=== PATIENT | male | born 1975 | race Caucasian/White ===

== ENCOUNTER → 2016-04-12 | Outpatient (CLI) | payer BC, OTHER ==
[2016-04-12 13:10] VITALS: BP 144/92; PULSE 82; RESP 16; TEMP 97.7
--- NOTE | 2016-04-12 13:23 | P.PN ---
Progress Note - Text Patient returns for followup for chronic back pain with radiation to right hip and RLE. Patient recently underwent TFESI x 2 with 75% relief for three months. Patient continues on no medications for pain. Patient denies adverse drug effects from medications. Today, pt denies new-onset weakness, bowel/ bladder incontinence, or any other signs or symptoms of cauda equina syndrome. There are no signs of acute intoxication, and no indications of medication diversion or overuse. In addition to above, 13-point review of systems is also negative for chest pain , shortness of breath, changes in vision, changes in hearing, new onset weakness , abdominal pain, diarrhea, extreme fatigue, malaise, fever, skin changes, homicidal or suicidal ideation, or bowel or bladder incontinence. Vital Signs: Reviewed in EMR Gen: WDWN, AAOx3, NAD HEENT: NCAT, EOMI, hearing grossly normal Pulm: resp unlabored Abd: soft, NT, ND Neck: supple, trachea midline ROM in flexion lumbar spine: reduced ROM in extension lumbar spine: reduced Lumbar paravertebral tenderness: + Facet loading: + R side SI joint tenderness: neg Orlin's test: neg Straight leg raise: + R side at 30-35 degrees Neuro: CN II-XII grossly intact, muscle strength lower extremities PRESERVED Imaging: Reviewed in EMR Assessment: 1. lumbar radiculopathy 2. chronic pain syndrome 3. Plan: 1. Explanation: Opioid and psychological risk scores were reviewed. Diagnoses , prognoses, and multiple treatment options including but not limited to physical therapy, interventional therapies, adjuvant medical therapies, narcotic medication therapies, and surgery were discussed with the patient and all questions were answered to the patient's satisfaction. 2. Opioid agreement: no opioids prescribed 3. Counseling: The patient was counseled extensively on BODY MASS INDEX, EXERCISE. Specifically, the patient was instructed regarding the importance of weight control and exercise in the context of both chronic pain and overall health. 4. Procedures: right L4-L5 and L5-S1 TFESI in 12 weeks 5. Consultations: None 6. Investigations: None 7. Medications: none prescribed 8. Disposition: f/u for procedure as scheduled PQRS measures: 1-Patient's medications are documented in the chart. 2-Tobacco use is negative 3-Patient has not had a pneumococcal vaccine. 4-Advanced care planning discussed, patient unable to give. 5-Opioid contract NOT signed with the patient as no opioids given. 6-Pain positive, follow-up visit or procedure scheduled 7-Patient's blood pressure measured and documented, and patient will follow up with the primary care due to hypertension. 8-Patient's weight was measured, and body mass index ABOVE the normal limits, and counseling was done. Patient instructed to follow up with PCP. 9-Patient WAS NOT identified as an unhealthy alcohol user.
== END | disposition home or self-care (01) ==
LOC: PNWHC3 12:39
PROVIDERS: ATTEND Anesthesiology
DX: M54.16 Radiculopathy, lumbar region (principal); G89.4 Chronic pain syndrome; I10 Essential (primary) hypertension
CPT/HCPCS: 99211

== ENCOUNTER 2016-07-04 06:29 | Day surgery (SDC) | payer BC, OTHER ==
[2016-06-30 14:36] VITALS: BMI 29.5
[2016-07-04] MEDS ORDERED: LACTATED RINGERS 1,000 ML IV ONE ×2 (07:43→08:15)
[2016-07-04] MEDS ORDERED: LIDOCAINE 1% 20 ML VIAL (10MG/ML) FOR IV START INTRADERMA ONE (07:44)
[2016-07-04 07:46] VITALS: RESP 18; TEMP 97.7
[2016-07-04] MEDS ORDERED: TRIAMCINOLONE ACETONIDE 40 MG/ML 1 ML VIAL ONE (07:58)
[2016-07-04] MEDS ORDERED: IOHEXOL 180 MG/ML 1 ML ML ONE (07:58)
[2016-07-04] MEDS ORDERED: MIDAZOLAM 2 MG/2 ML VIAL ONE (07:58)
[2016-07-04] MEDS ORDERED: BUPIVACAINE (PF) 0.5% 30 ML VIAL ONE (07:58)
[2016-07-04] MEDS ORDERED: IV FLUID CONTINUATION 1,000 ML IV ONE (08:15)
--- NOTE | 2016-07-04 08:24 | P.PCN ---
Date of Procedure: 07/04/16 Surgeon: Cortez Ribeiro Pathology: none sent Condition: stable Disposition: PACU Description of Procedure: PREOPERATIVE DIAGNOSIS: 1-Lumbar radiculitis POSTOPERATIVE DIAGNOSIS: 1-Lumbar radiculitis PROCEDURE 1. Transforaminal epidural steroid injection under fluoroscopic guidance at right L4-L5 and L5-S1 levels. 2. Lumbar epidurogram. ANESTHESIA: Conscious sedation with Versed. EBL: Minimal PROCEDURE INDICATION: The patient with low back and leg pain that has been unresponsive to conservative management. No use of blood thinners. Good relief from previous R TFESI x 2, presents for third injection today. PROCEDURE DESCRIPTION / TECHNIQUE: The patient was seen and identified in the preoperative area. Risks, benefits, complications, and alternatives were discussed with the patient, including but not limited to bleeding, infection, nerve damage, allergic reactions to medications, and incomplete pain relief. The patient agreed to proceed with the procedure and signed the consent after all questions were answered. IV was started, and vital signs were stable. Patient was taken to the OR and time out was completed to confirm patient position, procedure, laterality of pain, and allergies. The patient was placed in the prone position on procedure table and a pillow was placed under the abdomen to reduce lumbar lordosis. The lumbosacral area was prepped and draped in the usual sterile fashion. Critical pause was taken. Vital signs were closely monitored during the procedure. Conscious sedation was used during the procedure to decrease patients anxiety. Using oblique fluoroscopy, the chins of the eSn dog at right L4 level and right L5 level were identified. After localization, a 22-gauge 3.5-inch spinal needle was advanced under a tunneled view fluoroscopic guidance just underneath the chin of the Sen dog at the right L4 and right L5 vertebrae. Under lateral fluoroscopy, the needle was then advanced to the posterior border of the interforaminal spaces at both levels. After negative aspiration of CSF and blood and in the absence of paresthesias, 0.5 mL ofomnipaque-300 contrast dye was injected at each level demonstrating excellent epidurogram and outlining the nerve roots. Subsequently, after repeat negative aspiration and confirmation of the epidurogram in the AP view, 2 mL of 4 ml block solution containing 80 mg of Kenalog and 2 mL of PF 1% lidocaine was injected at each level. At the end of the procedure, needles were removed intact, skin was cleansed, and bandages were applied. COMPLICATIONS: None DISPOSITION / PLANS: The patient was placed in a supine position and transferred to the recovery area in a stable condition for observation. There was no evidence of lower extremity motor or sensory deficit after the procedure. Patient was discharged from the recovery room after meeting discharge criteria. Home discharge instructions were given to the patient by the staff. The patient was reexamined prior to discharge and there were no issues. The patient will schedule a follow up in clinic in 4-6 weeks.
[2016-07-04 08:37] VITALS: BP 123/82; PULSE 58
--- NOTE | 2016-07-04 08:39 | FL ---
EXAMINATION TYPE: FL guided pain mgmt statistic DATE OF EXAM: 07/04/2016 8:15 AM FLUOROSCOPY Fluoroscopy time of 19 seconds was used during transforaminal lumbar injection. 4 image/s document/s the procedure.
== END 2016-07-04 08:44 | disposition home or self-care (01) ==
LOC: ORPAIN 06:29
PROVIDERS: ATTEND Anesthesiology
DX: G89.29 Other chronic pain (principal); M54.16 Radiculopathy, lumbar region
CPT/HCPCS: 64483; 64484; 99152; J2250; J3301; Q9965